=== PATIENT | male | born 1955 | race Asian ===

== ENCOUNTER 2022-01-12 16:57 | Emergency (ER) | payer OTHER ==
[~2022-01-12] VITALS: Ht 157.5 cm; Wt 61.0 kg
[2022-01-12 17:04] VITALS: BP 130/74
[2022-01-12] MEDS ORDERED: HYDR-4001 MT (18:26)
== END 2022-01-12 18:33 | disposition home or self-care (01) ==
LOC: ER 16:57
DX: B36.9 Superficial mycosis, unspecified (principal); H62.43 Otitis externa in other diseases classified elsewhere, bilateral
CPT/HCPCS: 99281

== ENCOUNTER 2022-01-18 18:20 | Emergency (ER) | payer OTHER ==
[~2022-01-18] VITALS: Ht 167.6 cm; Wt 74.0 kg
[~2022-01-18 18:20] MED LIST: HYDR-4001 MT
[2022-01-18 20:12] LABS: BASOPHILS % 0.3 % (0.0-2.0); EOSINOPHILS % 7.3 % (0.0-5.0); HEMATOCRIT. 35.3 % (42.0-52.0); LYMPHOCYTES % 39.8 % (20.0-50.0); MEAN CORPUSCULAR HEMOGLOBIN 28.7 pg (28.0-32.0); MEAN CORPUSCULAR VOLUME 84.8 fL (80.0-94.0); MEAN PLATELET VOLUME 8.2 fl (7.4-10.4); MONOCYTES % 9.8 % (2.0-8.0); NEUTROPHILS % 42.8 % (40.0-76.0); PLATELET 209 x1000/uL (130-400); RED BLOOD CELL COUNT 4.16 mill/uL (4.7-6.1); RED CELL DISTRIBUTION WIDTH 14.5 % (11.6-14.6)
[2022-01-18 20:19] LABS: CHLORIDE 108 mEq/L (98-107)
[2022-01-18 20:25] LABS: C REACTIVE PROTEIN QUANT 3.8 mg/L (0.0-3.0)
[2022-01-18 21:40] VITALS: BP 129/74
[2022-01-18] MEDS ORDERED: AMOX-424 MT (21:47)
[2022-01-18] MEDS ORDERED: OFLO5DRO4 RIGHT EAR (21:51)
[2022-01-18] MEDS ORDERED: AMOXICILLIN/POTASSIUM CLAVULANATE 875/125MG TAB PO SCH (22:00)
== END 2022-01-18 22:05 | disposition home or self-care (01) ==
LOC: ER 18:20
DX: H66.91 Otitis media, unspecified, right ear (principal); H60.91 Unspecified otitis externa, right ear; H92.02 Otalgia, left ear; I10 Essential (primary) hypertension; E11.65 Type 2 diabetes mellitus with hyperglycemia; D64.9 Anemia, unspecified; R79.82 Elevated C-reactive protein (CRP)
CPT/HCPCS: 36415; 70481; 80053; 85025; 85651; 86140; 99285

== ENCOUNTER 2022-02-08 15:06 | Emergency (ER) | payer OTHER ==
[~2022-02-08] VITALS: Ht 162.6 cm; Wt 59.0 kg
[~2022-02-08 15:06] MED LIST changes: +AMOX-424 MT; +OFLO5DRO4 RIGHT EAR
[2022-02-08] MEDS ORDERED: CIPHCO EACH EAR (20:00)
[2022-02-08 21:06] VITALS: BP 145/75
== END 2022-02-08 21:08 | disposition home or self-care (01) ==
LOC: ER 15:06
DX: H61.21 Impacted cerumen, right ear (principal); I10 Essential (primary) hypertension; E11.9 Type 2 diabetes mellitus without complications; E78.00 Pure hypercholesterolemia, unspecified
CPT/HCPCS: 99281